=== PATIENT | male | born 2000 | race Caucasian/White ===

== ENCOUNTER 2024-03-25 11:01 | Observation (INO) | payer OTHER ==
[~2024-03-25] VITALS: Ht 170.2 cm; Wt 73.2 kg
[2024-03-25] VITALS (10 sets, daily range): BP systolic 124–141; BP diastolic 63–76; TEMP 97.8–98.2; O2SAT 97–99
[2024-03-25] MEDS ORDERED: ISOVUE-370 76% 100ML VIAL As Ordered ONE (11:31)
[2024-03-25 11:46] LABS: HEMOGLOBIN 15.2 g/dl (13.5-17.5); MEAN CORPUSCULAR HEMOGLOBIN 30.9 pg (27.0-33.0); MEAN CORPUSCULAR HGB CONC 34.5 g/dl (32.0-36.5); MEAN CORPUSCULAR VOLUME 89.4 fl (80.0-96.0); PLATELET COUNT, AUTOMATED 202 10^3/uL (150-450); RED BLOOD COUNT 4.92 10^6/uL (4.30-6.10); WHITE BLOOD COUNT 6.7 10^3/uL (4.0-10.0)
[2024-03-25 12:15] LABS: ALBUMIN 4.7 G/DL (3.2-5.2); ALKALINE PHOSPHATASE 89 U/L (46-116); ALT/SGPT 29 U/L (7.0-40); AST/SGOT 31 U/L (<34); BILIRUBIN,DIRECT 0.4 MG/DL (<0.4); BILIRUBIN,TOTAL 1.3 MG/DL (0.3-1.2); BLOOD UREA NITROGEN 12 MG/DL (9-23); CALCIUM LEVEL 9.3 MG/DL (8.5-10.1); CARBON DIOXIDE LEVEL 27 MMOL/L (20-31); CHLORIDE LEVEL 108 MMOL/L (98-107); CREATININE FOR GFR 1.14 MG/DL (0.70-1.30); GLOMERULAR FILTRATION RATE > 60.0 (>60); GLUCOSE, FASTING 103 MG/DL (60-100); POTASSIUM SERUM 3.7 MMOL/L (3.5-5.1); SODIUM LEVEL 141 MMOL/L (136-145)
[2024-03-25] MEDS ORDERED: HOME MED LIST COMPLETE! XX SCH (13:35)
[2024-03-25] MEDS ORDERED: MOM 30ML SUSPENSION UDC PO PRN (14:35)
[2024-03-25] MEDS ORDERED: ACETAMINOPHEN TAB 650MG DOSE (2X325MG) PO PRN (14:35)
[2024-03-25] MEDS ORDERED: MAALOX 30 ML SUSP *UDC PO PRN (14:35)
[2024-03-25] MEDS ORDERED: PERCOCET 5MG/325MG TAB PO PRN (14:40)
[2024-03-26] VITALS (8 sets, daily range): BP systolic 128–145; BP diastolic 58–70; TEMP 97.5–98.1; O2SAT 96–99
[2024-03-26 06:39] LABS: BLOOD UREA NITROGEN 11 MG/DL (9-23); CALCIUM LEVEL 8.6 MG/DL (8.5-10.1); CARBON DIOXIDE LEVEL 26 MMOL/L (20-31); CHLORIDE LEVEL 108 MMOL/L (98-107); CREATININE FOR GFR 1.01 MG/DL (0.70-1.30); GLOMERULAR FILTRATION RATE > 60.0 (>60); GLUCOSE, FASTING 92 MG/DL (60-100); SODIUM LEVEL 140 MMOL/L (136-145)
== END 2024-03-26 12:34 | disposition home or self-care (01) ==
LOC: M ED 11:01 → M ED INP 11:02 → M PCU 15:20
PROVIDERS: ADMIT Student in an Organized Health Care Education/Training Program; ATTEND Student in an Organized Health Care Education/Training Program
DX: J98.2 Interstitial emphysema (principal); R49.8 Other voice and resonance disorders; R07.9 Chest pain, unspecified; R07.0 Pain in throat
CPT/HCPCS: 36415; 70491; 71046; 71260; 80047; 80048; 80076; 85027; 93005; 93041; 94760; 99285; Q9967

== ENCOUNTER → 2024-05-05 | Outpatient (CLI) | payer OTHER | LOC: M RAD 11:12 | PROVIDERS: ATTEND Internal Medicine Pulmonary Disease | DX: J98.2 Interstitial emphysema (principal) ==